=== PATIENT | male | born 1945 | race Caucasian/White ===

== ENCOUNTER 2018-09-30 11:25 | Emergency (ER) | payer MEDICARE, OTHER ==
--- NOTE | 2018-09-30 11:28 | EDM.PDOC ---
ED HPI GENERAL MEDICAL PROBLEM - General Chief Complaint: Gastrointestinal Problem Stated Complaint: VOMITING AND DIARRHEA Time Seen by Provider: 09/30/18 11:40 Source of Information: Reports: Patient, Family (Franklins and daughter) History Limitations: Reports: No Limitations - History of Present Illness INITIAL COMMENTS - FREE TEXT/NARRATIVE: 73-year-old male presents to the ED for evaluation of acute onset of nausea vomiting and diarrhea starting about 2300 hrs. last night. The history is Okay to by the fact that he has been taking oral antibiotic I believe Cipro twice daily for the last 10 days for urinary tract infection. He was in the clinic on Wednesday in [facility] and had a repeat urinalysis. They are to phone call yesterday that his urine is still showing signs of infection. They went back to [facility] and had a shot of Rocephin 1 g given intramuscularly therefore the concern exists for possibility of C. difficile enteritis. However his reports that she was ill with similar type illness over the last few days with nausea vomiting and diarrhea. Patient is of no fever but has had some chills. Patient that no blood in emesis or the diarrhea. He estimates she's vomited about 20 times and he said at least 12 loose watery stools. High volume stool loss. Patient hasn't been able to keep down any of his medications today. He is on several medications for his heart. Once the med list was sent from [facility] it appears that he was on a 10 day course of cephalexin 500 3 times a day for 10 days for UTI and he was on Macrobid 100 mL twice a day for one week. Not been on Cipro. He is not on Coumadin. He is on Eliquis 5 mg twice a day for his bioprosthetic heart valve. He is on torsemide 20 mg a day as well for his diuretic. Onset: Sudden Onset Date: 09/29/18 Onset Time: 23:00 Duration: Hour(s): Location: Reports: Abdomen (Recurrent nausea vomiting diarrhea that started about the same time last night. Neither one contains any blood.) Quality: Reports: Other (Mild abdominal discomfort but little cramps.) Severity: Severe Improves with: Reports: None Worsens with: Reports: None Context: Reports: Sick Contact. Denies: Activity, Exercise, Lifting, Trauma, Other ( is ill with similar type illness 2 days ago.) Associated Symptoms: Reports: Loss of Appetite, Nausea/Vomiting (Recurrently since 2300 hrs. last night. Almost every half hour. Last emesis was a half hour ago and was bilious.). Denies: No Other Symptoms, Confusion, Chest Pain, Cough , cough w sputum, Diaphoresis, Fever/Chills, Headaches, Malaise, Rash, Seizure, Shortness of Breath, Syncope Treatments [employer]: Reports: Other (see below) (None is nothing will stay down) - Related Data Allergies Allergy/AdvReac Type Severity Reaction Status Date / Time lisinopril Allergy Other Verified 09/30/18 12:16 lorazepam Allergy Other Verified 09/30/18 12:16 silver Allergy Other Verified 09/30/18 12:16 [From Tegaderm AG Mesh] tape Allergy Other Uncoded 09/30/18 12:16 Home Meds: Home Meds Dicyclomine [Bentyl] 20 mg PO Q6H PRN #5 tablet 09/30/18 [Rx] Doxycycline [Vibramycin] 100 mg PO BID #84 cap 09/30/18 [Rx] Ondansetron [Zofran] 4 mg BUCCAL Q6H PRN #5 tab 09/30/18 [Rx] Past Medical History Cardiovascular History: Reports: Heart Failure, Heart Valve Replacement (Aortic valve replacement in June 2017. No blood vessels were repaired), Hypertension Social & Family History - Living Situation & Occupation Living situation: Reports: Occupation: Retired ED ROS GENERAL - Review of Systems Review Of Systems: See Below Constitutional: Reports: Chills, Malaise, Weakness, Fatigue, Decreased Appetite. Denies: Fever HEENT: Reports: Glasses Respiratory: Reports: Shortness of Breath. Denies: Wheezing, Pleuritic Chest Pain, Cough, Sputum, Hemoptysis Cardiovascular: Reports: Blood Pressure Problem, Dyspnea on Exertion, Lightheadedness. Denies: Chest Pain, Claudication, Edema Endocrine: Reports: Fatigue GI/Abdominal: Reports: Diarrhea (About 12 times overnight with large volume stool losses.) : Reports: Frequency, Other (Nocturia usually 2.) Musculoskeletal: Reports: Joint Pain (These hips low back neck at times.) Skin: Reports: No Symptoms Neurological: Reports: No Symptoms Psychiatric: Reports: No Symptoms Hematologic/Lymphatic: Reports: No Symptoms Immunologic: Reports: No Symptoms ED EXAM, GI/ABD - Physical Exam Exam: See Below Exam Limited By: No Limitations General Appearance: Alert, WD/WN, No Apparent Distress, Other (Blood pressure is low at 06/21/78 and came down to 101/72.) Eyes: Bilateral: Normal Appearance Throat/Mouth: Other (tongue is mildly dry and coated.) Head: Atraumatic, Normocephalic Neck: Normal Inspection, Supple, Non-Tender, Full Range of Motion. No: Lymphadenopathy (L), Lymphadenopathy (R) Respiratory/Chest: No Respiratory Distress, Lungs Clear, Normal Breath Sounds, No Accessory Muscle Use, Other Cardiovascular: Regular Rate, Rhythm, No Edema, No Gallop, No Rub, Systolic Murmur (Grade 1/6 holosystolic ejection murmur best heard at the left lower sternal border). No: Normal Peripheral Pulses (Well-healed midline sternotomy incision) GI/Abdominal Exam: Non-Tender, No Organomegaly (Abdomen is firm to palpation.), No Abnormal Bruit, No Mass, Pelvis Stable, Abnormal Bowel Sounds (Bowel sounds are quite active in all 4 quadrants), Other Back Exam: Normal Inspection, Full Range of Motion. No: CVA Tenderness (L), CVA Tenderness (R) Extremities: Normal Inspection, Normal Range of Motion, Non-Tender, No Pedal Edema Neurological: Alert, Oriented, CN II-XII Intact, Normal Cognition Psychiatric: Normal Affect, Normal Mood Skin Exam: Warm, Dry, Intact, Normal Color, No Rash Course - Vital Signs Last Recorded V/S: Last Vital Signs Temp 36.2 C 09/30/18 11:33 Pulse 78 09/30/18 11:33 Resp 18 09/30/18 11:33 BP 108/79 09/30/18 11:33 Pulse Ox 92 L 09/30/18 11:33 Orthostatic Blood Pressure [ 101/69 Standing] Orthostatic Blood Pressure [ 118/78 Sitting] Orthostatic Blood Pressure [ 103/75 Supine] - Orders/Labs/Meds Orders: Active Orders 24 hr Category Date Time Status URINALYSIS W/MICROSCOPIC [UA W/MICROSCOPIC] [URIN] Stat Lab 09/30/18 13:52 Results Dextrose 5%-Lactated Ringers 1,000 ml Med 09/30/18 11:45 Active IV ASDIRECTED Isolation [COMM] Stat Oth 09/30/18 11:45 Ordered Medication Orders Dextrose/Lactated Ringer's (Dextrose 5%-Lactated Ringers) 1,000 mls @ 999 mls/ hr IV ASDIRECTED LEANDRO Last Admin: 09/30/18 12:22 Dose: 999 mls/hr Labs: Laboratory Tests 09/30/18 09/30/18 09/30/18 Range/Units 11:55 12:13 12:13 WBC 13.63 H (4.23-9.07) K/mm3 RBC 5.40 (4.63-6.08) M/mm3 Hgb 16.0 (13.7-17.5) gm/L Hct 48.7 (40.1-51.0) % MCV 90.2 (79.0-92.2) fl MCH 29.6 (25.7-32.2) pg MCHC 32.9 (32.2-35.5) g/dl RDW Std Deviation 46.1 H (35.1-43.9) fL Plt Count 205 (163-337) K/mm3 MPV 10.7 (9.4-12.3) fl Neutrophils % (Manual) 58 (40-60) % Band Neutrophils % 2 (0-10) % Lymphocytes % (Manual) 20 (20-40) % Atypical Lymphs % 0 % Monocytes % (Manual) 16 H (2-10) % Eosinophils % (Manual) 4 (0.8-7.0) % Basophils % (Manual) 0 L (0.2-1.2) Platelet Estimate Adequate RBC Morph Comment Normal PT (9.5-12.1) SECONDS INR Sodium 140 (136-145) mEq/L Potassium 4.2 (3.5-5.1) mEq/L Chloride 105 (98-107) mEq/L Carbon Dioxide 22 (21-32) mEq/L Anion Gap 17.2 H (5-15) BUN 16 (7-18) mg/dL Creatinine 1.2 (0.7-1.3) mg/dL Est Cr Clr Drug Dosing 59.28 mL/min Estimated GFR (MDRD) 59 (>60) mL/min BUN/Creatinine Ratio 13.3 L (14-18) Glucose 246 H (83-115) mg/dL Calcium 9.8 (8.5-10.1) mg/dL Magnesium 1.9 (1.8-2.4) mg/dl Total Bilirubin 0.7 (0.2-1.0) mg/dL AST 30 (15-37) U/L ALT 28 (16-63) U/L Alkaline Phosphatase 111 (46-116) U/L C-Reactive Protein 2.9 H* (<1.0) mg/dL NT-Pro-B Natriuret Pep (0-125) pg/mL Total Protein 8.2 (6.4-8.2) g/dl Albumin 3.7 (3.4-5.0) g/dl Globulin 4.5 gm/dL Albumin/Globulin Ratio 0.8 L (1-2) Urine Color (Yellow) Urine Appearance (Clear) Urine pH (5.0-8.0) Ur Specific [place] (1.005-1.030) Urine Protein (Negative) Urine Glucose (UA) (Negative) Urine Ketones (Negative) Urine Occult Blood (Negative) Urine Nitrite (Negative) Urine Bilirubin (Negative) Urine Urobilinogen (0.2-1.0) Ur Leukocyte Esterase (Negative) C.difficile [id number] Presumptive negative C. difficile Tox (PCR) Negative 09/30/18 09/30/18 09/30/18 Range/Units 12:13 12:13 13:52 WBC (4.23-9.07) K/mm3 RBC (4.63-6.08) M/mm3 Hgb (13.7-17.5) gm/L Hct (40.1-51.0) % MCV (79.0-92.2) fl MCH (25.7-32.2) pg MCHC (32.2-35.5) g/dl RDW Std Deviation (35.1-43.9) fL Plt Count (163-337) K/mm3 MPV (9.4-12.3) fl Neutrophils % (Manual) (40-60) % Band Neutrophils % (0-10) % Lymphocytes % (Manual) (20-40) % Atypical Lymphs % % Monocytes % (Manual) (2-10) % Eosinophils % (Manual) (0.8-7.0) % Basophils % (Manual) (0.2-1.2) Platelet Estimate RBC Morph Comment PT 11.1 (9.5-12.1) SECONDS INR 1.02 Sodium (136-145) mEq/L Potassium (3.5-5.1) mEq/L Chloride (98-107) mEq/L Carbon Dioxide (21-32) mEq/L Anion Gap (5-15) BUN (7-18) mg/dL Creatinine (0.7-1.3) mg/dL Est Cr Clr Drug Dosing mL/min Estimated GFR (MDRD) (>60) mL/min BUN/Creatinine Ratio (14-18) Glucose (83-115) mg/dL Calcium (8.5-10.1) mg/dL Magnesium (1.8-2.4) mg/dl Total Bilirubin (0.2-1.0) mg/dL AST (15-37) U/L ALT (16-63) U/L Alkaline Phosphatase (46-116) U/L C-Reactive Protein (<1.0) mg/dL NT-Pro-B Natriuret Pep 1306 H (0-125) pg/mL Total Protein (6.4-8.2) g/dl Albumin (3.4-5.0) g/dl Globulin gm/dL Albumin/Globulin Ratio (1-2) Urine Color Yellow (Yellow) Urine Appearance Slt cloudy H (Clear) Urine pH 5.5 (5.0-8.0) Ur Specific [place] 1.020 (1.005-1.030) Urine Protein 1+ H (Negative) Urine Glucose (UA) 3+ H (Negative) Urine Ketones Negative (Negative) Urine Occult Blood 2+ H (Negative) Urine Nitrite Negative (Negative) Urine Bilirubin Negative (Negative) Urine Urobilinogen 0.2 (0.2-1.0) Ur Leukocyte Esterase 1+ H (Negative) C.difficile [id number] C. difficile Tox (PCR) Meds: Medications Generic Name Dose Route Start Last Admin Trade Name Freq PRN Reason Stop Dose Admin Dextrose/Lactated Ringer's 1,000 mls @ 999 mls/hr 09/30/18 11:45 09/30/18 12: 22 Dextrose 5%-Lactated Ringers IV 999 mls/hr ASDIRECTED LEANDRO Administration Discontinued Medications Generic Name Dose Route Start Last Admin Trade Name Freq PRN Reason Stop Dose Admin Dicyclomine HCl 20 mg 09/30/18 11:43 09/30/18 12:45 Bentyl PO 09/30/18 11:44 20 mg ONETIME ONE Administration Metoclopramide HCl 10 mg 09/30/18 11:43 09/30/18 12:20 Reglan IVPUSH 09/30/18 11:44 10 mg ONETIME ONE Administration - Radiology Interpretation Free Text/Narrative:: 73-year-old male presents to the ED with acute onset of nausea vomiting diarrhea last evening about 2300 hrs. Subsequently side about 20 emesis is all bilious material without blood and 12 loose large-volume stool losses. His was ill 2 days ago for about a day with vomiting and diarrhea. Patient is also been on antibiotics I Cipro 500 twice daily for 10 days for UTI and did receive a shot of Rocephin 1 g IM yesterday in [facility] before the left because of reported persistent urinary tract infection. He is afebrile with some chills. Minimal abdominal pain. Patient has a history of open heart surgery with aortic valve replacement. Unable to keep down his anticoagulants. Plan IV D5 Ringer's lactate at open. Reglan 10 mg IV. Until 20 mg by mouth 20 minutes after the Reglan is been infused . Routine labs including CRP and I will obtain a stool for C. difficile. - Re-Assessments/Exams Free Text/Narrative Re-Assessment/Exam: 09/30/18 11:54 patient's blood pressure runs low and he has not significantly orthostatic. 09/30/18 12:55 Hematology is back. White count is slightly elevated at 13.63 with 58% neutrophils and 2% band cells reported. Hemoglobin is 16.0 with hematocrit of 48.7 indicating some degree of hemoconcentration. Blood count is 205,000. 09/30/18 13:23 Total white count is elevated at 13.63. Danish was 50% neutrophils and 2% bands. Hemoglobin is 16.0 with hematocrit of 48.7 suggesting mild hemoconcentration. Platelet count is 205,000. Sodium 140 with potassium of 4.2. Portable upright with a bicarbonate 22. Anion gap is elevated at 17.2. BUN is 16 with a creatinine 1.2. Estimated GFR is 59. Glucose is elevated at 246. Calcium is 9.8. Magnesium is 1.9. Liver function is normal. C-reactive protein is 2.9. Total protein is 8.2 with a albumin fraction of 3.7 04/19/19 14:17 was negative for C. difficile. Urinalysis revealed only 1+ leukocyte esterase. Will therefore be started on Doxil cycle 100 mg twice a day for the next 6 weeks due to suspect chronic prostatitis. Departure - Departure Time of Disposition: 13:40 Disposition: Home, Self-Care 01 Condition: Fair Clinical Impression: Viral gastroenteritis, Chronic prostatitis - Discharge Information *PRESCRIPTION DRUG MONITORING PROGRAM REVIEWED*: Not Applicable *COPY OF PRESCRIPTION DRUG MONITORING REPORT IN PATIENT FRANK: Not Applicable Prescriptions: Dicyclomine [Bentyl] 20 mg PO Q6H PRN #5 tablet PRN Reason: Abdominal cramps/diarrhea Doxycycline [Vibramycin] 100 mg PO BID #84 cap Ondansetron [Zofran] 4 mg BUCCAL Q6H PRN #5 tab PRN Reason: nausea or vomiting Instructions: Viral Gastroenteritis, Adult, [id number], Prostatitis, Easy-to- Read Referrals: PCP,Not In Area [Primary Care Provider] - Forms: ED Department Discharge Additional Instructions: Evaluation in the emergency room today in regards to development of acute onset of nausea vomiting and diarrhea last night about 2300 hrs. The was ill with a similar type illness a couple of days ago and no doubt she contracted the same illness. Certain his recurrent urinary tract infections requiring multiple different antibiotics over the last couple of weeks. This introduces the possibility of Clostridium difficile organism which is an antibiotic induced form of diarrhea. Rarely would cause vomiting however. The culture has been ordered but the results are not yet available at the time of your discharge. I will therefore call you later with the results. Treatment was IV fluids in the department. Also medication Reglan 10 mg IV to arrest vomiting. Total 20 mg was given in the ED also to relieve diarrhea. Treatment at home is to continue Zofran 4 mg under the tongue every 4-6 hours necessary for relief of any further nausea or vomiting. Bentyl 20 mg by mouth every 4-6 hours needed for control of diarrhea or abdominal cramps. Suggest clear fluids such as Gatorade or Powerade diluted with one third water two thirds Gatorade or Powerade. This is a good fluids to replenish you. It also should not aggravate her blood sugars. When hungry try soda crackers first. If tolerated may advance to bread/toast. After this if tolerated may advance to soup broth or turkey rice /chicken noodle soup etc. Should avoid all dairy products and no apple juice or grape juice until stools are formed back up. Due to the suggestion of recurrent urinary tract infections treated with multiple different antibiotic so the last month I would suggest that the infection is likely in your prostate gland particular a since you are diabetic. Is my suggestion that you start doxycycline 100 mg twice daily for the next 6 weeks to try and eradicate chronic infection in the prostate gland. You may wait day or 2 to start this medication i.e. once the diarrhea is better the medication is likely to stay in the system longer become more effectual. - My Orders Last 24 Hours: My Active Orders 09/30/18 11:45 Dextrose 5%-Lactated Ringers 1,000 ml IV ASDIRECTED Isolation [COMM] Stat 09/30/18 13:52 URINALYSIS W/MICROSCOPIC [UA W/MICROSCOPIC] [URIN] Stat - Assessment/Plan Last 24 Hours: My Active Orders 09/30/18 11:45 Dextrose 5%-Lactated Ringers 1,000 ml IV ASDIRECTED Isolation [COMM] Stat 09/30/18 13:52 URINALYSIS W/MICROSCOPIC [UA W/MICROSCOPIC] [URIN] Stat
[2018-09-30] MEDS ORDERED: Dicyclomine 10 MG Cap PO ONE (11:43)
[2018-09-30] MEDS ORDERED: Metoclopramide 10 MG/2 ML SDV IVPUSH ONE (11:43)
[2018-09-30] MEDS ORDERED: Dextrose 5%-Lactated Ringers 1,000 ML IV SCH (11:45)
== END 2018-09-30 14:27 | disposition home or self-care (01) ==
LOC: JD.ED 11:25
DX: A08.4 Viral intestinal infection, unspecified (principal); N41.1 Chronic prostatitis; I11.0 Hypertensive heart disease with heart failure; I50.9 Heart failure, unspecified; Z88.8 Allergy status to other drugs, medicaments and biological substances; Z91.048 Other nonmedicinal substance allergy status
CPT/HCPCS: 36415; 80053; 81001; 83735; 83880; 85007; 85027; 85610; 86140; 87493; 96361; 96374; 99284; A9270; J2765; J7042

== ENCOUNTER 2022-04-19 13:21 | Inpatient (IN) | payer MEDICARE, OTHER ==
[2022-04-19] MEDS ORDERED: Sodium Chloride 0.9% 10 ML Syringe FLUSH PRN (13:31)
[2022-04-19] MEDS ORDERED: Ondansetron 4 MG/2 ML SDV IVPUSH ONE (13:39)
[2022-04-19] MEDS ORDERED: HYDROmorphone 0.5 MG/0.5 ML Syringe IVPUSH ONE ×2 (13:39→14:49)
[2022-04-19] MEDS: Sodium Chloride 0.9% 1,000 ML IV SCH (14:00)
[2022-04-19] MEDS: HYDROmorphone 0.5 MG/0.5 ML Syringe IVPUSH PRN ×2 (18:02→22:27)
[2022-04-20] MEDS: HYDROmorphone 0.5 MG/0.5 ML Syringe IVPUSH PRN ×2 (02:07→06:08)
[2022-04-20] MEDS: Sodium Chloride 0.9% 1,000 ML IV SCH ×2 (04:32→16:34)
[2022-04-20] MEDS: HYDROmorphone 1 MG/ML Syringe IVPUSH PRN ×2 (09:57→21:00)
[2022-04-20 10:41] LABS: HEMOGLOBIN A1C 6.1 %
[2022-04-20] MEDS: Famotidine 20 MG Tab PO SCH ×2 (10:57→20:02)
[2022-04-20] MEDS: Acetaminophen/oxyCODONE 325-5 MG Tab PO PRN ×2 (10:57→20:03)
[2022-04-20] MEDS ORDERED: Docusate Sodium 100 MG Cap PO SCH (11:00)
[2022-04-20] MEDS ORDERED: Sertraline 50 MG Tab PO SCH (11:00)
[2022-04-20] MEDS ORDERED: Magnesium Sulfate/Water 2 GM in Premix Bag 1 BAG IV ONE (11:00)
[2022-04-20] MEDS ORDERED: Tamsulosin 0.4 MG Cap.ER PO SCH (11:00)
[2022-04-20] MEDS ORDERED: Nitrofurantoin Monohydrate/Macrocrystalline 100 MG Cap PO SCH (11:00)
[2022-04-20] MEDS ORDERED: Bupivacaine 0.25% 10 ML SDV ONE (11:35)
[2022-04-20] MEDS ORDERED: Carbidopa/Levodopa 25-100 MG Tab PO SCH (12:00)
[2022-04-20] MEDS ORDERED: Lidocaine 1% 4 ML ONE (13:06)
[2022-04-20] MEDS ORDERED: Propofol 200 MG/20 ML SDV ONE ×2 (13:06→13:07)
[2022-04-20] MEDS ORDERED: fentaNYL 100 MCG/2 ML SDV ONE (13:09)
[2022-04-20] MEDS ORDERED: ePHEDrine 50 MG/ML SDV ONE (13:56)
[2022-04-20] MEDS ORDERED: ceFAZolin 2 GM Vial ONE (14:28)
[2022-04-20] MEDS ORDERED: Phenylephrine 1% 10 MG/ML SDV ONE (14:36)
[2022-04-20] MEDS ORDERED: Ondansetron 4 MG/2 ML SDV ONE (15:16)
[2022-04-20] MEDS ORDERED: Dexamethasone 4 MG/ML 5 ML MDV ONE (15:16)
[2022-04-20] MEDS ORDERED: fentaNYL 100 MCG/2 ML SDV IVPUSH PRN (15:40)
[2022-04-20] MEDS ORDERED: HYDROmorphone 0.5 MG/0.5 ML Syringe IVPUSH PRN (15:40)
[2022-04-20] MEDS: Sertraline 50 MG Tab PO SCH (17:28)
[2022-04-20] MEDS: Tamsulosin 0.4 MG Cap.ER PO SCH (17:28)
[2022-04-20] MEDS: Carbidopa/Levodopa 25-100 MG Tab PO SCH ×2 (17:28→20:02)
[2022-04-20] MEDS: Docusate Sodium 100 MG Cap PO SCH (20:02)
[2022-04-21] MEDS: Acetaminophen/oxyCODONE 325-5 MG Tab PO PRN ×2 (01:38→18:04)
[2022-04-21] MEDS: HYDROmorphone 1 MG/ML Syringe IVPUSH PRN (03:53)
[2022-04-21] MEDS: Carbidopa/Levodopa 25-100 MG Tab PO SCH ×6 (05:56→20:25)
[2022-04-21] MEDS: Tamsulosin 0.4 MG Cap.ER PO SCH (09:00)
[2022-04-21] MEDS: Sertraline 50 MG Tab PO SCH (09:00)
[2022-04-21] MEDS: Famotidine 20 MG Tab PO SCH ×2 (09:01→20:25)
[2022-04-21] MEDS: Docusate Sodium 100 MG Cap PO SCH ×2 (09:01→20:25)
[2022-04-21] MEDS: Nitrofurantoin Monohydrate/Macrocrystalline 100 MG Cap PO SCH (09:03)
[2022-04-21] MEDS: Acetaminophen 325 MG Tab PO PRN (12:45)
[2022-04-21] MEDS: [UNRECOGNIZED DRUG - OTHER] SCH (15:16)
[2022-04-21] MEDS ORDERED: QUEtiapine 25 MG Tab PO SCH (21:00)
[2022-04-22] MEDS: HYDROmorphone 1 MG/ML Syringe IVPUSH PRN (05:36)
[2022-04-22] MEDS: Carbidopa/Levodopa 25-100 MG Tab PO SCH ×5 (05:37→20:47)
[2022-04-22] MEDS: Sertraline 50 MG Tab PO SCH (09:04)
[2022-04-22] MEDS: Famotidine 20 MG Tab PO SCH ×2 (09:04→20:51)
[2022-04-22] MEDS: Docusate Sodium 100 MG Cap PO SCH ×2 (09:04→20:50)
[2022-04-22] MEDS: Acetaminophen 325 MG Tab PO PRN ×2 (09:04→14:33)
[2022-04-22] MEDS: Tamsulosin 0.4 MG Cap.ER PO SCH (09:04)
[2022-04-22] MEDS: Nitrofurantoin Monohydrate/Macrocrystalline 100 MG Cap PO SCH (09:04)
[2022-04-22] MEDS ORDERED: DICLOFENAC SODIUM 1% TOP PRN (14:39)
[2022-04-22] MEDS: QUEtiapine 25 MG Tab PO SCH ×2 (15:50→21:10)
[2022-04-22] MEDS ORDERED: Carbidopa/Levodopa 25-100 MG Tab PO SCH (20:00)
[2022-04-22] MEDS: Acetaminophen/oxyCODONE 325-5 MG Tab PO PRN (20:45)
[2022-04-23] MEDS: Acetaminophen/oxyCODONE 325-5 MG Tab PO PRN ×4 (02:24→23:52)
[2022-04-23] MEDS ORDERED: Magnesium Hydroxide 400 MG/5 ML Susp 30 ML Cup PO ONE (06:40)
[2022-04-23] MEDS: Carbidopa/Levodopa 25-100 MG Tab PO SCH ×3 (06:45→19:37)
[2022-04-23] MEDS: Famotidine 20 MG Tab PO SCH ×2 (08:02→20:00)
[2022-04-23] MEDS: Nitrofurantoin Monohydrate/Macrocrystalline 100 MG Cap PO SCH (08:02)
[2022-04-23] MEDS: Acetaminophen 325 MG Tab PO PRN ×2 (08:02→16:12)
[2022-04-23] MEDS: Tamsulosin 0.4 MG Cap.ER PO SCH (08:02)
[2022-04-23] MEDS: Docusate Sodium 100 MG Cap PO SCH ×2 (08:03→21:00)
[2022-04-23] MEDS: Modafinil 200 MG Tab PO SCH (08:03)
[2022-04-23] MEDS ORDERED: Sodium Ferric Gluconate Cmplex 125 MG in Sodium Chloride 0.9% 100 ML IV ONE (11:00)
[2022-04-23] MEDS: QUEtiapine 25 MG Tab PO SCH ×2 (16:12→19:36)
[2022-04-23] MEDS: Sertraline 50 MG Tab PO SCH (19:36)
[2022-04-24] MEDS: Acetaminophen/oxyCODONE 325-5 MG Tab PO PRN ×2 (05:18→16:59)
[2022-04-24] MEDS: Carbidopa/Levodopa 25-100 MG Tab PO SCH ×3 (05:18→21:31)
[2022-04-24] MEDS: Famotidine 20 MG Tab PO SCH ×2 (09:05→21:32)
[2022-04-24] MEDS: Nitrofurantoin Monohydrate/Macrocrystalline 100 MG Cap PO SCH (09:05)
[2022-04-24] MEDS: Tamsulosin 0.4 MG Cap.ER PO SCH (09:05)
[2022-04-24] MEDS: Modafinil 200 MG Tab PO SCH (09:05)
[2022-04-24] MEDS: Acetaminophen 325 MG Tab PO PRN ×3 (09:05→21:22)
[2022-04-24] MEDS: Docusate Sodium 100 MG Cap PO SCH ×2 (09:06→21:31)
[2022-04-24] MEDS: QUEtiapine 25 MG Tab PO SCH ×2 (15:41→21:31)
[2022-04-24] MEDS: Sertraline 50 MG Tab PO SCH (21:31)
[2022-04-25] MEDS: Acetaminophen 325 MG Tab PO PRN ×4 (04:27→20:40)
[2022-04-25] MEDS ORDERED: Bisacodyl 10 MG Supp RECTAL ONE ×2 (05:00→07:00)
[2022-04-25] MEDS: Carbidopa/Levodopa 25-100 MG Tab PO SCH ×3 (07:08→20:40)
[2022-04-25] MEDS: Docusate Sodium 100 MG Cap PO SCH ×2 (08:07→22:32)
[2022-04-25] MEDS: Nitrofurantoin Monohydrate/Macrocrystalline 100 MG Cap PO SCH (08:07)
[2022-04-25] MEDS: Modafinil 200 MG Tab PO SCH (08:07)
[2022-04-25] MEDS: Tamsulosin 0.4 MG Cap.ER PO SCH (08:08)
[2022-04-25] MEDS: Famotidine 20 MG Tab PO SCH ×2 (12:04→20:39)
[2022-04-25] MEDS: QUEtiapine 25 MG Tab PO SCH ×2 (16:03→20:39)
[2022-04-25] MEDS: Sertraline 50 MG Tab PO SCH (20:39)
[2022-04-26] MEDS: Acetaminophen/oxyCODONE 325-5 MG Tab PO PRN (02:56)
[2022-04-26] MEDS: Carbidopa/Levodopa 25-100 MG Tab PO SCH ×3 (05:28→20:47)
[2022-04-26] MEDS: Acetaminophen 325 MG Tab PO PRN ×3 (06:58→20:47)
[2022-04-26] MEDS: Docusate Sodium 100 MG Cap PO SCH ×2 (09:34→20:47)
[2022-04-26] MEDS: Famotidine 20 MG Tab PO SCH ×2 (09:34→20:47)
[2022-04-26] MEDS: Tamsulosin 0.4 MG Cap.ER PO SCH (09:35)
[2022-04-26] MEDS: Nitrofurantoin Monohydrate/Macrocrystalline 100 MG Cap PO SCH (09:35)
[2022-04-26] MEDS: Modafinil 200 MG Tab PO SCH (09:37)
[2022-04-26] MEDS: QUEtiapine 25 MG Tab PO SCH ×2 (15:33→20:47)
[2022-04-26] MEDS: Sertraline 50 MG Tab PO SCH (20:47)
[2022-04-27] MEDS: Acetaminophen/oxyCODONE 325-5 MG Tab PO PRN (01:43)
[2022-04-27] MEDS: Acetaminophen 325 MG Tab PO PRN ×4 (05:20→20:54)
[2022-04-27] MEDS: Carbidopa/Levodopa 25-100 MG Tab PO SCH ×3 (05:21→20:52)
[2022-04-27] MEDS: Famotidine 20 MG Tab PO SCH ×2 (09:31→20:52)
[2022-04-27] MEDS: Nitrofurantoin Monohydrate/Macrocrystalline 100 MG Cap PO SCH (09:31)
[2022-04-27] MEDS: Modafinil 200 MG Tab PO SCH (09:31)
[2022-04-27] MEDS: Docusate Sodium 100 MG Cap PO SCH ×2 (09:31→20:52)
[2022-04-27] MEDS: Tamsulosin 0.4 MG Cap.ER PO SCH (09:31)
[2022-04-27] MEDS: QUEtiapine 25 MG Tab PO SCH ×2 (17:32→20:51)
[2022-04-27] MEDS: Sertraline 50 MG Tab PO SCH (20:52)
[2022-04-28] MEDS: Carbidopa/Levodopa 25-100 MG Tab PO SCH ×3 (06:55→19:50)
[2022-04-28] MEDS: Acetaminophen 325 MG Tab PO PRN ×3 (06:55→18:47)
[2022-04-28] MEDS: Nitrofurantoin Monohydrate/Macrocrystalline 100 MG Cap PO SCH (08:43)
[2022-04-28] MEDS: Tamsulosin 0.4 MG Cap.ER PO SCH (08:43)
[2022-04-28] MEDS: Modafinil 200 MG Tab PO SCH (08:43)
[2022-04-28] MEDS: Docusate Sodium 100 MG Cap PO SCH ×3 (08:43→20:00)
[2022-04-28] MEDS: Famotidine 20 MG Tab PO SCH ×3 (08:43→20:00)
[2022-04-28] MEDS: Acetaminophen/oxyCODONE 325-5 MG Tab PO PRN ×2 (09:13→19:51)
[2022-04-28] MEDS: QUEtiapine 25 MG Tab PO SCH ×2 (16:02→19:50)
[2022-04-28] MEDS: Sertraline 50 MG Tab PO SCH (19:51)
[2022-04-29] MEDS: Acetaminophen 325 MG Tab PO PRN ×3 (03:32→21:33)
[2022-04-29] MEDS: Acetaminophen/oxyCODONE 325-5 MG Tab PO PRN (05:16)
[2022-04-29] MEDS: Carbidopa/Levodopa 25-100 MG Tab PO SCH ×3 (05:17→21:33)
[2022-04-29] MEDS: Modafinil 200 MG Tab PO SCH (08:41)
[2022-04-29] MEDS: Nitrofurantoin Monohydrate/Macrocrystalline 100 MG Cap PO SCH (08:45)
[2022-04-29] MEDS: Docusate Sodium 100 MG Cap PO SCH ×2 (08:46→21:32)
[2022-04-29] MEDS: Famotidine 20 MG Tab PO SCH ×2 (08:46→21:33)
[2022-04-29] MEDS: Tamsulosin 0.4 MG Cap.ER PO SCH (08:46)
[2022-04-29] MEDS: QUEtiapine 25 MG Tab PO SCH ×2 (15:15→21:33)
[2022-04-29] MEDS: Sertraline 50 MG Tab PO SCH (21:34)
[2022-04-30] MEDS: Carbidopa/Levodopa 25-100 MG Tab PO SCH ×3 (06:24→20:51)
[2022-04-30] MEDS: Acetaminophen/oxyCODONE 325-5 MG Tab PO PRN ×2 (08:35→16:19)
[2022-04-30] MEDS: Nitrofurantoin Monohydrate/Macrocrystalline 100 MG Cap PO SCH (08:36)
[2022-04-30] MEDS: Modafinil 200 MG Tab PO SCH (08:36)
[2022-04-30] MEDS: Famotidine 20 MG Tab PO SCH ×2 (08:37→20:51)
[2022-04-30] MEDS: Tamsulosin 0.4 MG Cap.ER PO SCH (08:37)
[2022-04-30] MEDS: Docusate Sodium 100 MG Cap PO SCH ×2 (08:37→20:51)
[2022-04-30] MEDS: QUEtiapine 25 MG Tab PO SCH ×2 (16:20→20:52)
[2022-04-30] MEDS: Sertraline 50 MG Tab PO SCH (20:51)
[2022-05-01] MEDS: Acetaminophen/oxyCODONE 325-5 MG Tab PO PRN (01:43)
[2022-05-01] MEDS: Carbidopa/Levodopa 25-100 MG Tab PO SCH ×3 (06:24→20:11)
[2022-05-01] MEDS: Modafinil 200 MG Tab PO SCH (08:11)
[2022-05-01] MEDS: Acetaminophen 325 MG Tab PO PRN ×3 (08:13→20:11)
[2022-05-01] MEDS: Tamsulosin 0.4 MG Cap.ER PO SCH (08:14)
[2022-05-01] MEDS: Famotidine 20 MG Tab PO SCH ×2 (08:14→20:10)
[2022-05-01] MEDS: Nitrofurantoin Monohydrate/Macrocrystalline 100 MG Cap PO SCH (08:14)
[2022-05-01] MEDS: Docusate Sodium 100 MG Cap PO SCH ×2 (08:14→20:11)
[2022-05-01] MEDS: QUEtiapine 25 MG Tab PO SCH ×2 (16:43→20:11)
[2022-05-01] MEDS: Sertraline 50 MG Tab PO SCH (20:11)
[2022-05-02] MEDS: Carbidopa/Levodopa 25-100 MG Tab PO SCH ×3 (05:17→20:28)
[2022-05-02] MEDS: Acetaminophen/oxyCODONE 325-5 MG Tab PO PRN (05:19)
[2022-05-02] MEDS: Modafinil 200 MG Tab PO SCH (08:40)
[2022-05-02] MEDS: Docusate Sodium 100 MG Cap PO SCH ×2 (08:40→20:28)
[2022-05-02] MEDS: Tamsulosin 0.4 MG Cap.ER PO SCH (08:40)
[2022-05-02] MEDS: Famotidine 20 MG Tab PO SCH ×2 (08:42→20:28)
[2022-05-02] MEDS: Nitrofurantoin Monohydrate/Macrocrystalline 100 MG Cap PO SCH (08:42)
[2022-05-02] MEDS: Acetaminophen 325 MG Tab PO PRN ×3 (08:42→20:28)
[2022-05-02] MEDS: QUEtiapine 25 MG Tab PO SCH ×2 (16:16→20:28)
[2022-05-02] MEDS: Sertraline 50 MG Tab PO SCH (20:28)
[2022-05-03] MEDS: Acetaminophen 325 MG Tab PO PRN ×4 (02:01→19:56)
[2022-05-03] MEDS: Carbidopa/Levodopa 25-100 MG Tab PO SCH ×3 (05:54→19:57)
[2022-05-03] MEDS: Nitrofurantoin Monohydrate/Macrocrystalline 100 MG Cap PO SCH (08:27)
[2022-05-03] MEDS: Docusate Sodium 100 MG Cap PO SCH ×2 (08:27→20:00)
[2022-05-03] MEDS: Famotidine 20 MG Tab PO SCH ×2 (08:27→19:59)
[2022-05-03] MEDS: Modafinil 200 MG Tab PO SCH (08:28)
[2022-05-03] MEDS: Tamsulosin 0.4 MG Cap.ER PO SCH (08:28)
[2022-05-03] MEDS: QUEtiapine 25 MG Tab PO SCH ×2 (16:47→19:58)
[2022-05-03] MEDS: Sertraline 50 MG Tab PO SCH (19:59)
[2022-05-04] MEDS: Acetaminophen 325 MG Tab PO PRN ×5 (01:59→20:47)
[2022-05-04] MEDS: Carbidopa/Levodopa 25-100 MG Tab PO SCH ×3 (06:38→20:48)
[2022-05-04] MEDS: Famotidine 20 MG Tab PO SCH ×2 (08:44→20:48)
[2022-05-04] MEDS: Docusate Sodium 100 MG Cap PO SCH ×2 (08:44→20:48)
[2022-05-04] MEDS: Modafinil 200 MG Tab PO SCH (08:45)
[2022-05-04] MEDS: Tamsulosin 0.4 MG Cap.ER PO SCH (08:45)
[2022-05-04] MEDS: Nitrofurantoin Monohydrate/Macrocrystalline 100 MG Cap PO SCH (08:45)
[2022-05-04] MEDS: QUEtiapine 25 MG Tab PO SCH ×2 (16:14→20:48)
[2022-05-04] MEDS: Sertraline 50 MG Tab PO SCH (20:48)
[2022-05-05] MEDS: Acetaminophen 325 MG Tab PO PRN ×2 (01:37→09:40)
[2022-05-05] MEDS: Carbidopa/Levodopa 25-100 MG Tab PO SCH (05:49)
[2022-05-05] MEDS: Nitrofurantoin Monohydrate/Macrocrystalline 100 MG Cap PO SCH (09:41)
[2022-05-05] MEDS: Docusate Sodium 100 MG Cap PO SCH (09:41)
[2022-05-05] MEDS: Famotidine 20 MG Tab PO SCH (09:41)
[2022-05-05] MEDS: Modafinil 200 MG Tab PO SCH (09:41)
[2022-05-05] MEDS: Tamsulosin 0.4 MG Cap.ER PO SCH (09:41)
== END 2022-05-05 10:32 | disposition home or self-care (01) | DRG 480 ==
LOC: JD.ED 13:21 → JD.MS 15:29
PROVIDERS: ADMIT Internal Medicine; ATTEND Internal Medicine
PROC: 0QS636Z Reposition Right Upper Femur with Intramedullary Internal Fixation Device, Percutaneous Approach (ICD-10-PCS; principal; 2022-04-20)
DX: S72.002A Fracture of unspecified part of neck of left femur, initial encounter for closed fracture (principal); U07.1 COVID-19; R29.6 Repeated falls; R26.9 Unspecified abnormalities of gait and mobility; I69.398 Other sequelae of cerebral infarction; G20 Parkinson's disease; I10 Essential (primary) hypertension; H91.90 Unspecified hearing loss, unspecified ear; I11.0 Hypertensive heart disease with heart failure; I50.9 Heart failure, unspecified; M19.90 Unspecified osteoarthritis, unspecified site; G43.909 Migraine, unspecified, not intractable, without status migrainosus; E11.9 Type 2 diabetes mellitus without complications; N41.1 Chronic prostatitis; R82.71 Bacteriuria; E83.42 Hypomagnesemia; D64.9 Anemia, unspecified; E61.1 Iron deficiency; F03.A0 Unspecified dementia, mild, without behavioral disturbance, psychotic disturbance, mood disturbance, and anxiety; W19.XXXA Unspecified fall, initial encounter; Z98.49 Cataract extraction status, unspecified eye; Z95.2 Presence of prosthetic heart valve; Z87.440 Personal history of urinary (tract) infections; Z88.8 Allergy status to other drugs, medicaments and biological substances; Z91.09 Other allergy status, other than to drugs and biological substances; Z79.899 Other long term (current) drug therapy; Y92.009 Unspecified place in unspecified non-institutional (private) residence as the place of occurrence of the external cause
CPT/HCPCS: 36415; 73502; 80053; 83735; 85025; 85610; 93005; J1170 ×2; J2405; J3490; J7030; 01230; 76000; 76000-26; 80048; 81001; 83036; 83540; 84466; 87086; 87641; 93010; 94761; 96374; 96375; 96376; 97110-GP; 97116-GP; 97162-GP; 97166-GO; 97530-GO; 97530-GP; 97535-GO; 99223; 99233; 99239; 99284; 99285-25; A9270-GY; C1713; J0690; J1100; J2370; J2704; J2916; J3010; J3475; U0002

== ENCOUNTER 2024-02-18 08:44 | Inpatient (IN) | payer MEDICARE, OTHER ==
[2024-02-18 09:22] LABS: HEMOGLOBIN 12.7 gm/dl (14.0-18.0); MEAN CORPUSCULAR HEMOGLOBIN 29.3 pg (28.0-32.0); MEAN CORPUSCULAR HGB CONC 28.9 g/dl (32.0-36.0); MEAN CORPUSCULAR VOLUME 101.4 fl (83.0-99.0); MEAN PLATELET VOLUME 10.1 fl (9.4-12.4); PLATELET COUNT,PLT 199 K/mm3 (150-400); RED BLOOD CELL COUNT 4.34 M/mm3 (4.52-5.90); WHITE BLOOD CELL COUNT,WBC 13.02 K/mm3 (3.9-11.3)
[2024-02-18 09:30] LABS: INR 1.08; PROTHROMBIN TIME 11.4 SECONDS (9.7-12.0)
[2024-02-18 09:45] LABS: A/G RATIO 0.6 (1-2); ALBUMIN 3.1 g/dl (3.4-5.0); ALKALINE PHOSPHATASE 192 U/L (46-116); ANION GAP 15.1 (5-15); ASPARTATE AMNIOTRANSFERASE,AST 16 U/L (15-37); BILIRUBIN TOTAL 0.9 mg/dL (0.2-1.0); BLOOD UREA NITROGEN,BUN 31 mg/dL (7-18); BUN/CREATININE RATIO 16.3 (14-18); C-REACTIVE PROTEIN 13.16 mg/dL (<0.30); CALCIUM 8.9 mg/dL (8.5-10.1); CARBON DIOXIDE,CO2 30 mEq/L (21-32); CHLORIDE,CL 104 mEq/L (98-107); CREATININE 1.9 mg/dL (0.7-1.3); EST CRCL DRUG DOSING (CG) 32.97 mL/min; ESTIMATED GFR 35 mL/min (>60); GLUCOSE RANDOM 136 mg/dL (70-99); POTASSIUM,K 4.1 mEq/L (3.5-5.1); PROTEIN TOTAL,TP 8.3 g/dl (6.4-8.2); SODIUM,NA 145 mEq/L (136-145); TROPONIN I HIGH SENSITIVITY 39 pg/mL (<=76)
[2024-02-18 09:47] LABS: BAND PERCENT MAN 0 % (0-10); BASOPHILS PERCENT MAN 0 (0.2-1.2); EOSINOPHILS PERCENT MAN 0 % (0.8-7.0); LYMPHOCYTES % ATYPICAL MANUAL 0 %; LYMPHOCYTES PERCENT MAN 6 % (20-40); MONOCYTES PERCENT MAN 8 % (2-10)
[2024-02-18 09:48] LABS: HYPOCHROMASIA 2+ MODERATE; POLYCHROMASIA 1+ SLIGHT; STOMATOCYTES 2+ MODERATE
[2024-02-18 09:49] LABS: PLATELET COUNT ESTIMATE ADEQUATE
[2024-02-18] MEDS: methylPREDNISolone Sodium Succinate 125 MG/2 ML SDV IVPUSH ONE (09:54)
[2024-02-18] MEDS: Sodium Chloride 0.9% 1,000 ML IV ONE ×3 (09:54→12:41)
[2024-02-18] MEDS: Sodium Chloride 0.9% 10 ML Syringe FLUSH PRN (09:54)
[2024-02-18 10:02] LABS: CORONAVIRUS COVID-19 NAA NEGATIVE (NEGATIVE); INFLUENZA A NAA NEGATIVE (NEGATIVE); RESPIRATORY SYNCYTIAL VIR NAA NEGATIVE (NEGATIVE)
[2024-02-18 10:06] LABS: ALANINE AMINOTRANSFERASE,ALT < 6 U/L (16-63)
[2024-02-18 10:08] LABS: LACTIC ACID 3.8 mmol/L (0.4-2.0)
[2024-02-18] MEDS: Albuterol/Ipratropium 3.0-0.5 MG/3 ML Neb Soln NEB ONE (10:12)
[2024-02-18] MEDS: cefTRIAXone 2 GM in Sodium Chloride 0.9% 100 ML IV ONE (11:20)
[2024-02-18 11:38] LABS: APPEARANCE,URINE CLOUDY (Clear); BILIRUBIN,URINE 1+ (Negative); COLOR,URINE DARK YELLOW (Yellow); GLUCOSE,URINE NEGATIVE (Negative); KETONES,URINE TRACE (Negative); LEUKOCYTE ESTERASE,URINE 1+ (Negative); NITRITE,URINE POSITIVE (Negative); OCCULT BLOOD,URINE 3+ (Negative); PROTEIN,URINE 1+ (Negative); UROBILINOGEN,URINE 0.2 (0.2-1.0)
[2024-02-18 11:43] LABS: BACTERIA,URINE MANY /hpf (FEW); EPITHELIAL CELLS,URINE 0-5 /hpf (0-5); RBC,URINE >100 /hpf (0-5)
[2024-02-18 11:44] LABS: MUCUS,URINE FEW /hpf (FEW)
[2024-02-18] MEDS ORDERED: Cefepime 2 GM in Sodium Chloride 0.9% 50 ML IV SCH (13:00)
[2024-02-18] MEDS ORDERED: oxyCODONE 5 MG Tab PO PRN (13:09)
[2024-02-18] MEDS ORDERED: Polyethylene Glycol 3350 Powder 17 GM Packet PO PRN (13:09)
[2024-02-18] MEDS ORDERED: Docusate Sodium 100 MG Cap PO PRN (13:09)
[2024-02-18] MEDS ORDERED: Ondansetron 4 MG/2 ML SDV IV PRN (13:09)
[2024-02-18] MEDS ORDERED: Diclofenac Sodium 1% Gel 100 GM Tube TOP PRN (15:31)
[2024-02-18] MEDS: Cefepime 2 GM in Sodium Chloride 0.9% 50 ML IV SCH (15:46)
[2024-02-18] MEDS: Heparin Sodium 5,000 Units/ML Vial SUBCUT SCH (15:46)
[2024-02-18] MEDS ORDERED: QUEtiapine 25 MG Tab PO PRN (16:04)
[2024-02-18] MEDS: QUEtiapine 25 MG Tab PO SCH ×2 (16:41→21:23)
[2024-02-18] MEDS: Carbidopa/Levodopa 25-100 MG Tab PO ONE (16:42)
[2024-02-18] MEDS: Albuterol/Ipratropium 3.0-0.5 MG/3 ML Neb Soln NEB SCH (16:51)
[2024-02-18] MEDS: Doxycycline 100 MG in Sodium Chloride 0.9% 100 ML IV SCH (21:23)
[2024-02-18] MEDS: Carbidopa/Levodopa 25-100 MG Tab PO SCH (21:23)
[2024-02-19 05:33] LABS: BASOPHILS PERCENT AUTO 0.1 % (0.0-1.0); HEMATOCRIT 38.8 % (42.0-52.0); HEMOGLOBIN 11.3 gm/dl (14.0-18.0); IMMATURE GRAN ABSOLUTE AUTO 0.05 K/mm3 (0.00-0.05); IMMATURE GRAN PERCENT AUTO 0.7 % (0.0-0.4); LYMPHOCYTES ABSOLUTE AUTO 0.5 K/mm3 (1.0-4.8); LYMPHOCYTES PERCENT AUTO 7.1 % (24.0-44.0); MEAN CORPUSCULAR HEMOGLOBIN 29.4 pg (28.0-32.0); MEAN CORPUSCULAR HGB CONC 29.1 g/dl (32.0-36.0); MEAN CORPUSCULAR VOLUME 100.8 fl (83.0-99.0); MEAN PLATELET VOLUME 10.2 fl (9.4-12.4); MONOCYTES ABSOLUTE AUTO 0.7 K/mm3 (0.0-0.8); MONOCYTES PERCENT AUTO 8.9 % (0.0-8.0); NEUTROPHILS ABSOLUTE AUTO 6.1 K/mm3 (1.8-7.7); NEUTROPHILS PERCENT AUTO 83.2 % (41.0-71.0); PLATELET COUNT,PLT 142 K/mm3 (150-400); RED BLOOD CELL COUNT 3.85 M/mm3 (4.52-5.90); WHITE BLOOD CELL COUNT,WBC 7.29 K/mm3 (3.9-11.3)
[2024-02-19 05:49] LABS: A/G RATIO 0.5 (1-2); ALBUMIN 2.2 g/dl (3.4-5.0); ALKALINE PHOSPHATASE 139 U/L (46-116); ANION GAP 8.1 (5-15); ASPARTATE AMNIOTRANSFERASE,AST 12 U/L (15-37); BILIRUBIN TOTAL 0.4 mg/dL (0.2-1.0); BLOOD UREA NITROGEN,BUN 32 mg/dL (7-18); BUN/CREATININE RATIO 24.6 (14-18); C-REACTIVE PROTEIN 10.12 mg/dL (<0.30); CALCIUM 8.3 mg/dL (8.5-10.1); CARBON DIOXIDE,CO2 33 mEq/L (21-32); CHLORIDE,CL 108 mEq/L (98-107); CREATININE 1.3 mg/dL (0.7-1.3); EST CRCL DRUG DOSING (CG) 48.57 mL/min; ESTIMATED GFR 56 mL/min (>60); GLUCOSE RANDOM 107 mg/dL (70-99); MAGNESIUM 1.8 mg/dL (1.8-2.4); POTASSIUM,K 4.1 mEq/L (3.5-5.1); PROTEIN TOTAL,TP 6.3 g/dl (6.4-8.2); SODIUM,NA 145 mEq/L (136-145)
[2024-02-19 06:09] LABS: ALANINE AMINOTRANSFERASE,ALT < 6 U/L (16-63)
[2024-02-19] MEDS: Tamsulosin 0.4 MG Cap.ER PO SCH (09:25)
[2024-02-19] MEDS: Sertraline 50 MG Tab PO SCH (09:25)
[2024-02-19] MEDS: Metoprolol Succinate 25 MG Tab.ER PO SCH (09:26)
[2024-02-19] MEDS: OMEPRAZOLE 10 MG PO SCH (09:31)
[2024-02-19] MEDS: TRELEGY ELLIPTA INH SCH (10:21)
[2024-02-19] MEDS: Bumetanide 1 MG Tab PO SCH (11:43)
[2024-02-19] MEDS: Acetaminophen 325 MG Tab PO PRN (17:15)
[2024-02-20] MEDS: Albuterol 0.083% 2.5 MG/3 ML Neb Soln NEB PRN (02:43)
[2024-02-20 05:30] LABS: BASOPHILS PERCENT AUTO 0.1 % (0.0-1.0); EOSINOPHILS PERCENT AUTO 0.1 % (0.0-6.0); HEMATOCRIT 39.2 % (42.0-52.0); HEMOGLOBIN 11.4 gm/dl (14.0-18.0); IMMATURE GRAN ABSOLUTE AUTO 0.05 K/mm3 (0.00-0.05); IMMATURE GRAN PERCENT AUTO 0.6 % (0.0-0.4); LYMPHOCYTES ABSOLUTE AUTO 0.5 K/mm3 (1.0-4.8); LYMPHOCYTES PERCENT AUTO 5.2 % (24.0-44.0); MEAN CORPUSCULAR HEMOGLOBIN 29.1 pg (28.0-32.0); MEAN CORPUSCULAR HGB CONC 29.1 g/dl (32.0-36.0); MEAN PLATELET VOLUME 9.8 fl (9.4-12.4); MONOCYTES ABSOLUTE AUTO 0.9 K/mm3 (0.0-0.8); NEUTROPHILS ABSOLUTE AUTO 7.3 K/mm3 (1.8-7.7); PLATELET COUNT,PLT 134 K/mm3 (150-400); RED BLOOD CELL COUNT 3.92 M/mm3 (4.52-5.90); WHITE BLOOD CELL COUNT,WBC 8.73 K/mm3 (3.9-11.3)
[2024-02-20 05:55] LABS: A/G RATIO 0.5 (1-2); ALBUMIN 2.3 g/dl (3.4-5.0); ALKALINE PHOSPHATASE 141 U/L (46-116); ANION GAP 9.6 (5-15); ASPARTATE AMNIOTRANSFERASE,AST 14 U/L (15-37); BILIRUBIN TOTAL 0.5 mg/dL (0.2-1.0); BLOOD UREA NITROGEN,BUN 30 mg/dL (7-18); C-REACTIVE PROTEIN 8.36 mg/dL (<0.30); CALCIUM 8.2 mg/dL (8.5-10.1); CARBON DIOXIDE,CO2 32 mEq/L (21-32); CHLORIDE,CL 107 mEq/L (98-107); EST CRCL DRUG DOSING (CG) 60.64 mL/min; ESTIMATED GFR 77 mL/min (>60); GLUCOSE RANDOM 134 mg/dL (70-99); POTASSIUM,K 3.6 mEq/L (3.5-5.1); PROTEIN TOTAL,TP 6.6 g/dl (6.4-8.2); SODIUM,NA 145 mEq/L (136-145)
[2024-02-20 06:02] LABS: ALANINE AMINOTRANSFERASE,ALT < 6 U/L (16-63)
[2024-02-20 07:22] LABS: BASE EXCESS ARTERIAL 3.3 (-2-2.0); O2 SATURATION ARTERIAL 86.3 % (96.0-97.0); PCO2 ARTERIAL 58.9 mmHg (35.0-45.0)
[2024-02-20] MEDS: methylPREDNISolone Sodium Succinate 40 MG/1 ML SDV IVPUSH SCH (09:19)
[2024-02-20] MEDS: guaiFENesin 600 MG Tab.ER PO SCH (12:21)
[2024-02-21 05:29] LABS: BASOPHILS PERCENT AUTO 0.1 % (0.0-1.0); HEMATOCRIT 37.3 % (42.0-52.0); IMMATURE GRAN ABSOLUTE AUTO 0.03 K/mm3 (0.00-0.05); IMMATURE GRAN PERCENT AUTO 0.4 % (0.0-0.4); LYMPHOCYTES ABSOLUTE AUTO 0.7 K/mm3 (1.0-4.8); LYMPHOCYTES PERCENT AUTO 8.5 % (24.0-44.0); MEAN CORPUSCULAR HEMOGLOBIN 29.3 pg (28.0-32.0); MEAN CORPUSCULAR HGB CONC 29.5 g/dl (32.0-36.0); MEAN CORPUSCULAR VOLUME 99.5 fl (83.0-99.0); MEAN PLATELET VOLUME 10.1 fl (9.4-12.4); MONOCYTES PERCENT AUTO 11.8 % (0.0-8.0); NEUTROPHILS ABSOLUTE AUTO 6.5 K/mm3 (1.8-7.7); NEUTROPHILS PERCENT AUTO 79.2 % (41.0-71.0); PLATELET COUNT,PLT 128 K/mm3 (150-400); RED BLOOD CELL COUNT 3.75 M/mm3 (4.52-5.90); WHITE BLOOD CELL COUNT,WBC 8.15 K/mm3 (3.9-11.3)
[2024-02-21 05:45] LABS: A/G RATIO 0.6 (1-2); ALBUMIN 2.4 g/dl (3.4-5.0); ALKALINE PHOSPHATASE 124 U/L (46-116); ANION GAP 8.8 (5-15); ASPARTATE AMNIOTRANSFERASE,AST 14 U/L (15-37); BILIRUBIN TOTAL 0.5 mg/dL (0.2-1.0); BLOOD UREA NITROGEN,BUN 27 mg/dL (7-18); C-REACTIVE PROTEIN 9.17 mg/dL (<0.30); CALCIUM 8.7 mg/dL (8.5-10.1); CARBON DIOXIDE,CO2 34 mEq/L (21-32); CHLORIDE,CL 106 mEq/L (98-107); CREATININE 0.9 mg/dL (0.7-1.3); EST CRCL DRUG DOSING (CG) 67.38 mL/min; ESTIMATED GFR 87 mL/min (>60); GLUCOSE RANDOM 84 mg/dL (70-99); POTASSIUM,K 3.8 mEq/L (3.5-5.1); PROTEIN TOTAL,TP 6.6 g/dl (6.4-8.2); SODIUM,NA 145 mEq/L (136-145)
[2024-02-21 05:58] LABS: ALANINE AMINOTRANSFERASE,ALT < 6 U/L (16-63)
[2024-02-21] MEDS: Cefepime 2 GM in Sodium Chloride 0.9% 50 ML IV SCH (11:47)
[2024-02-21 14:10] LABS: BASE EXCESS ARTERIAL 4.7 (-2-2.0); O2 SATURATION ARTERIAL 92.4 % (96.0-97.0); PCO2 ARTERIAL 64.8 mmHg (35.0-45.0)
[2024-02-21] MEDS: Furosemide 20 MG/2 ML VIAL IVPUSH ONE (16:34)
[2024-02-22 05:36] LABS: BASE EXCESS ARTERIAL 8.5 (-2-2.0); BICARBONATE,ARTERIAL 35.7 meq/L (22.0-26.0); O2 SATURATION ARTERIAL 93.6 % (96.0-97.0); PCO2 ARTERIAL 67.6 mmHg (35.0-45.0)
[2024-02-22 06:43] LABS: BASOPHILS PERCENT AUTO 0.1 % (0.0-1.0); EOSINOPHILS PERCENT AUTO 0.2 % (0.0-6.0); HEMATOCRIT 37.7 % (42.0-52.0); HEMOGLOBIN 10.8 gm/dl (14.0-18.0); IMMATURE GRAN ABSOLUTE AUTO 0.04 K/mm3 (0.00-0.05); IMMATURE GRAN PERCENT AUTO 0.5 % (0.0-0.4); LYMPHOCYTES ABSOLUTE AUTO 0.6 K/mm3 (1.0-4.8); LYMPHOCYTES PERCENT AUTO 6.4 % (24.0-44.0); MEAN CORPUSCULAR HEMOGLOBIN 28.7 pg (28.0-32.0); MEAN CORPUSCULAR HGB CONC 28.6 g/dl (32.0-36.0); MEAN CORPUSCULAR VOLUME 100.3 fl (83.0-99.0); MEAN PLATELET VOLUME 10.3 fl (9.4-12.4); MONOCYTES ABSOLUTE AUTO 0.9 K/mm3 (0.0-0.8); MONOCYTES PERCENT AUTO 10.7 % (0.0-8.0); NEUTROPHILS ABSOLUTE AUTO 7.2 K/mm3 (1.8-7.7); NEUTROPHILS PERCENT AUTO 82.1 % (41.0-71.0); PLATELET COUNT,PLT 111 K/mm3 (150-400); RED BLOOD CELL COUNT 3.76 M/mm3 (4.52-5.90); WHITE BLOOD CELL COUNT,WBC 8.72 K/mm3 (3.9-11.3)
[2024-02-22 07:15] LABS: SLIDE REVIEW ABNORMAL SMEAR
[2024-02-22 07:23] LABS: A/G RATIO 0.6 (1-2); ALBUMIN 2.4 g/dl (3.4-5.0); ALKALINE PHOSPHATASE 121 U/L (46-116); ANION GAP 7.6 (5-15); ASPARTATE AMNIOTRANSFERASE,AST 14 U/L (15-37); BILIRUBIN TOTAL 0.5 mg/dL (0.2-1.0); BLOOD UREA NITROGEN,BUN 25 mg/dL (7-18); BUN/CREATININE RATIO 31.3 (14-18); C-REACTIVE PROTEIN 8.52 mg/dL (<0.30); CARBON DIOXIDE,CO2 36 mEq/L (21-32); CHLORIDE,CL 106 mEq/L (98-107); CREATININE 0.8 mg/dL (0.7-1.3); EST CRCL DRUG DOSING (CG) 77.44 mL/min; ESTIMATED GFR 90 mL/min (>60); GLUCOSE RANDOM 79 mg/dL (70-99); MAGNESIUM 1.7 mg/dL (1.8-2.4); POTASSIUM,K 3.6 mEq/L (3.5-5.1); PROTEIN TOTAL,TP 6.6 g/dl (6.4-8.2); SODIUM,NA 146 mEq/L (136-145)
[2024-02-22 08:24] LABS: CALCIUM 8.5 mg/dL (8.5-10.1)
[2024-02-22 08:34] LABS: ALANINE AMINOTRANSFERASE,ALT < 6 U/L (16-63)
[2024-02-22] MEDS ORDERED: Modafinil 200 MG Tab PO SCH (09:00)
[2024-02-22] MEDS: Sodium Chloride 0.9% 100 ML IV SCH (10:11)
[2024-02-22] MEDS: Iopamidol 755 Mg/ML 100 ML Bottle IVPUSH ONE (10:11)
[2024-02-22] MEDS: Sodium Chloride 0.9% 10 ML Syringe FLUSH PRN (10:11)
[2024-02-22] MEDS: acetaZOLAMIDE 500 MG Vial IVPUSH ONE (20:13)
[2024-02-22] MEDS: methylPREDNISolone Sodium Succinate 40 MG/1 ML SDV IVPUSH SCH (20:13)
[2024-02-22] MEDS: QUEtiapine 25 MG Tab PO SCH (20:13)
[2024-02-22] MEDS: Furosemide 40 MG/4 ML VIAL IVPUSH ONE (22:02)
[2024-02-23 06:30] LABS: HEMATOCRIT 39.4 % (42.0-52.0); HEMOGLOBIN 11.4 gm/dl (14.0-18.0); IMMATURE GRAN ABSOLUTE AUTO 0.04 K/mm3 (0.00-0.05); IMMATURE GRAN PERCENT AUTO 0.6 % (0.0-0.4); LYMPHOCYTES ABSOLUTE AUTO 0.3 K/mm3 (1.0-4.8); LYMPHOCYTES PERCENT AUTO 4.9 % (24.0-44.0); MEAN CORPUSCULAR HEMOGLOBIN 29.2 pg (28.0-32.0); MEAN CORPUSCULAR HGB CONC 28.9 g/dl (32.0-36.0); MEAN CORPUSCULAR VOLUME 100.8 fl (83.0-99.0); MEAN PLATELET VOLUME 10.3 fl (9.4-12.4); MONOCYTES ABSOLUTE AUTO 0.3 K/mm3 (0.0-0.8); MONOCYTES PERCENT AUTO 4.3 % (0.0-8.0); NEUTROPHILS PERCENT AUTO 90.2 % (41.0-71.0); PLATELET COUNT,PLT 100 K/mm3 (150-400); RED BLOOD CELL COUNT 3.91 M/mm3 (4.52-5.90)
[2024-02-23 07:39] LABS: A/G RATIO 0.5 (1-2); ALBUMIN 2.4 g/dl (3.4-5.0); ALKALINE PHOSPHATASE 121 U/L (46-116); ANION GAP 8.8 (5-15); ASPARTATE AMNIOTRANSFERASE,AST 12 U/L (15-37); BILIRUBIN TOTAL 0.5 mg/dL (0.2-1.0); BLOOD UREA NITROGEN,BUN 30 mg/dL (7-18); BUN/CREATININE RATIO 33.3 (14-18); CALCIUM 9.2 mg/dL (8.5-10.1); CARBON DIOXIDE,CO2 35 mEq/L (21-32); CHLORIDE,CL 107 mEq/L (98-107); CREATININE 0.9 mg/dL (0.7-1.3); EST CRCL DRUG DOSING (CG) 68.83 mL/min; ESTIMATED GFR 87 mL/min (>60); GLUCOSE RANDOM 143 mg/dL (70-99); POTASSIUM,K 3.8 mEq/L (3.5-5.1); SODIUM,NA 147 mEq/L (136-145)
[2024-02-23 07:41] LABS: ALANINE AMINOTRANSFERASE,ALT < 6 U/L (16-63)
[2024-02-23 08:01] LABS: SLIDE REVIEW ABNORMAL SMEAR
[2024-02-23] MEDS ORDERED: LORazepam 2 MG/ML SDV IVPUSH PRN (09:35)
[2024-02-23] MEDS: acetaZOLAMIDE 500 MG Vial IVPUSH ONE (11:52)
[2024-02-24 04:55] LABS: HEMOGLOBIN 11.1 gm/dl (14.0-18.0); IMMATURE GRAN ABSOLUTE AUTO 0.04 K/mm3 (0.00-0.05); IMMATURE GRAN PERCENT AUTO 0.5 % (0.0-0.4); LYMPHOCYTES ABSOLUTE AUTO 0.4 K/mm3 (1.0-4.8); LYMPHOCYTES PERCENT AUTO 5.6 % (24.0-44.0); MEAN CORPUSCULAR HEMOGLOBIN 29.1 pg (28.0-32.0); MEAN CORPUSCULAR HGB CONC 29.2 g/dl (32.0-36.0); MEAN CORPUSCULAR VOLUME 99.5 fl (83.0-99.0); MONOCYTES ABSOLUTE AUTO 0.6 K/mm3 (0.0-0.8); MONOCYTES PERCENT AUTO 7.3 % (0.0-8.0); NEUTROPHILS ABSOLUTE AUTO 6.5 K/mm3 (1.8-7.7); NEUTROPHILS PERCENT AUTO 86.6 % (41.0-71.0); PLATELET COUNT,PLT 96 K/mm3 (150-400); RED BLOOD CELL COUNT 3.82 M/mm3 (4.52-5.90); WHITE BLOOD CELL COUNT,WBC 7.49 K/mm3 (3.9-11.3)
[2024-02-24 05:23] LABS: A/G RATIO 0.5 (1-2); ALBUMIN 2.3 g/dl (3.4-5.0); ALKALINE PHOSPHATASE 134 U/L (46-116); ANION GAP 7.7 (5-15); ASPARTATE AMNIOTRANSFERASE,AST 15 U/L (15-37); BILIRUBIN TOTAL 0.4 mg/dL (0.2-1.0); BLOOD UREA NITROGEN,BUN 37 mg/dL (7-18); BUN/CREATININE RATIO 46.3 (14-18); CALCIUM 9.1 mg/dL (8.5-10.1); CARBON DIOXIDE,CO2 36 mEq/L (21-32); CHLORIDE,CL 111 mEq/L (98-107); CREATININE 0.8 mg/dL (0.7-1.3); EST CRCL DRUG DOSING (CG) 76.76 mL/min; ESTIMATED GFR 90 mL/min (>60); GLUCOSE RANDOM 119 mg/dL (70-99); MAGNESIUM 1.8 mg/dL (1.8-2.4); PHOSPHORUS 2.3 mg/dL (2.6-4.7); POTASSIUM,K 3.7 mEq/L (3.5-5.1); PROTEIN TOTAL,TP 6.6 g/dl (6.4-8.2); SODIUM,NA 151 mEq/L (136-145)
[2024-02-24 06:04] LABS: SLIDE REVIEW ABNORMAL SMEAR
[2024-02-24 06:17] LABS: ALANINE AMINOTRANSFERASE,ALT < 6 U/L (16-63)
[2024-02-24] MEDS: Sodium Chloride 3% Inhalation Soln 4 ML Neb NEB SCH (09:42)
[2024-02-24] MEDS: Dextrose 5% in Water 1,000 ML IV SCH (11:52)
[2024-02-24] MEDS: Potassium Phosphates 30 MMOLE in Sodium Chloride 0.9% 500 ML IV ONE (12:44)
[2024-02-25 06:09] LABS: ANION GAP 7.7 (5-15); CALCIUM 9.1 mg/dL (8.5-10.1); CREATININE 0.9 mg/dL (0.7-1.3); EST CRCL DRUG DOSING (CG) 69.86 mL/min; MAGNESIUM 1.8 mg/dL (1.8-2.4); PHOSPHORUS 3.2 mg/dL (2.6-4.7); POTASSIUM,K 3.7 mEq/L (3.5-5.1)
[2024-02-25 06:48] LABS: FOLIC ACID 4.7 ng/mL (8.6-58.9)
[2024-02-25] MEDS ORDERED: Sennosides/Docusate Sodium 50-8.6 MG Tab PO PRN (10:37)
[2024-02-25] MEDS ORDERED: Prochlorperazine 10 MG/2 ML SDV IM PRN (10:37)
[2024-02-25] MEDS ORDERED: Acetaminophen 650 MG Supp RECTAL PRN (10:37)
[2024-02-25] MEDS ORDERED: Baclofen 10 MG Tab PO PRN (10:37)
[2024-02-25] MEDS: LORazepam 2 MG/ML SDV IV PRN (11:59)
[2024-02-25] MEDS: Magnesium Sulfate/Water 4 GM in Premix Bag 1 BAG IV ONE (14:35)
[2024-02-25] MEDS: Potassium Chloride 20 MEQ Tab.ER PO ONE (14:36)
[2024-02-25] MEDS: Morphine 2 MG/ML SYRINGE IV PRN (18:47)
[2024-02-25] MEDS ORDERED: Folic Acid 1 MG Tab PO SCH (21:00)
== END 2024-02-25 20:32 | disposition expired | DRG 871 ==
LOC: JD.ED 08:44 → JD.MS 12:48
PROVIDERS: ADMIT Family Medicine; ATTEND Internal Medicine
PROC: 3E03329 Introduction of Other Anti-infective into Peripheral Vein, Percutaneous Approach (ICD-10-PCS; principal; 2024-02-18)
PROC: 4A133R1 Monitoring of Arterial Saturation, Peripheral, Percutaneous Approach (ICD-10-PCS; 2024-02-18)
PROC: 5A0945A Assistance with Respiratory Ventilation, 24-96 Consecutive Hours, High Flow/Velocity Cannula (ICD-10-PCS; 2024-02-22)
PROC: 5A09357 Assistance with Respiratory Ventilation, Less than 24 Consecutive Hours, Continuous Positive Airway Pressure (ICD-10-PCS; 2024-02-23)
DX: A41.9 Sepsis, unspecified organism (principal); J18.9 Pneumonia, unspecified organism; N30.00 Acute cystitis without hematuria; J96.01 Acute respiratory failure with hypoxia; J96.02 Acute respiratory failure with hypercapnia; I50.22 Chronic systolic (congestive) heart failure; N17.9 Acute kidney failure, unspecified; Z91.048 Other nonmedicinal substance allergy status; E87.20 Acidosis, unspecified; N30.01 Acute cystitis with hematuria; J44.0 Chronic obstructive pulmonary disease with (acute) lower respiratory infection; Z66 Do not resuscitate; Z51.5 Encounter for palliative care; N40.1 Benign prostatic hyperplasia with lower urinary tract symptoms; R65.20 Severe sepsis without septic shock; G20.A1 Parkinson's disease without dyskinesia, without mention of fluctuations; K21.9 Gastro-esophageal reflux disease without esophagitis; G43.909 Migraine, unspecified, not intractable, without status migrainosus; H91.90 Unspecified hearing loss, unspecified ear; E11.9 Type 2 diabetes mellitus without complications; R26.9 Unspecified abnormalities of gait and mobility; I11.0 Hypertensive heart disease with heart failure; F32.A Depression, unspecified; G47.11 Idiopathic hypersomnia with long sleep time; D50.9 Iron deficiency anemia, unspecified; I25.10 Atherosclerotic heart disease of native coronary artery without angina pectoris; M19.90 Unspecified osteoarthritis, unspecified site; I08.1 Rheumatic disorders of both mitral and tricuspid valves; I72.3 Aneurysm of iliac artery; I50.810 Right heart failure, unspecified; Z88.8 Allergy status to other drugs, medicaments and biological substances; Z95.2 Presence of prosthetic heart valve; Z98.49 Cataract extraction status, unspecified eye; Z86.73 Personal history of transient ischemic attack (TIA), and cerebral infarction without residual deficits; Z86.16 Personal history of COVID-19; Z98.52 Vasectomy status; Z87.891 Personal history of nicotine dependence; Z79.899 Other long term (current) drug therapy; Z87.442 Personal history of urinary calculi; Z95.810 Presence of automatic (implantable) cardiac defibrillator
CPT/HCPCS: 0241U; 36415; 36600; 71045; 71046; 71275; 80048; 80053; 81001; 82607; 82746; 82803; 83605; 83735; 83880; 84100; 84484; 85007; 85025; 85027; 85379; 85610; 86140; 86738; 87040; 87086; 87088; 87186; 87641; 87899; 92610; 93005; 93306; 94640; 94660; 94667; 94668; 94761; 94762; 96361; 96365; 96375; 97110; 97161; 99285; 93010; A9270-GY; C1758; J0692; J0696; J1120; J1644; J1940; J2060; J2270; J2919; J3490; J7030; J7040; J7060; J7620-GY; Q9967